=== PATIENT | male | born 1970 | race Two or more races ===

== ENCOUNTER 2016-12-12 16:21 | Observation (INO) ==
--- NOTE | 2016-12-12 16:42 | EKG Report ---
Please refer to the EKG image. Final interpretation is pending.
[2016-12-12] MEDS ORDERED: ASPIRIN 325 MG TABLET PO STA (16:50)
[2016-12-12] MEDS ORDERED: MORPHINE 2 MG/1 ML SYRINGE IV STA (16:50)
[2016-12-12] MEDS ORDERED: ALUM/MAG/SIMETH/LIDO VISC 1:1 30 ML BOTTLE PO STA (16:50)
[2016-12-12] MEDS ORDERED: NITROGLYCERIN 2% OINT 1 INCH/GM PACK TOP STA (16:50)
[2016-12-12] MEDS ORDERED: ONDANSETRON 4 MG/2 ML VIAL IV STA (16:50)
[2016-12-12 17:06] LABS: Basophils # 0.1 10*3/uL (0.0-0.2); Basophils % 0.9 % (0.0-0.8); Eosinophils # 0.1 10*3/uL (0.0-0.87); Eosinophils % 1.9 % (0.00-10.9); Hematocrit 41.1 VOL% (42.0-52.0); Hemoglobin 14.4 GM/DL (14.0-18.0); Immature Granulocytes % 0.3 %; Immature Granulocytes Absolute 0.02 #; Lymphocytes # 1.7 10*3/uL (1.4-4.0); Lymphocytes % 28.9 % (21.2-54.2); Mean Corpuscular Hemoglobin 30 PG (27-34); Mean Corpuscular Volume 85.1 FL (87-102); Mean Platelet Volume 9.8 FL (9.6-12.0); Monocytes # 0.4 10*3/uL (0.11-0.8); Monocytes % 7.4 % (1.7-12.7); Neutrophils # 3.6 10*3/uL (1.4-7.4); Neutrophils % 60.6 % (38.7-73.9); Platelet Count 164 T/CUMM (130-400); Red Blood Count 4.83 MC/CUMM (3.8-5.5); Red Cell Distribution Width 12.6 % (9.3-17.3); White Blood Count 5.9 T/CUMM (4-12)
[2016-12-12] MEDS ORDERED: ONDANSETRON 4 MG/2 ML VIAL ONE (17:07)
[2016-12-12] MEDS ORDERED: NITROGLYCERIN 2% OINT 1 INCH/GM PACK TOP ONE (17:07)
[2016-12-12] MEDS ORDERED: ASPIRIN 325 MG TABLET ONE (17:07)
[2016-12-12] MEDS ORDERED: ALUM/MAG/SIMETH/LIDO VISC 1:1 30 ML BOTTLE PO ONE (17:07)
[2016-12-12] MEDS ORDERED: MORPHINE 2 MG/1 ML SYRINGE ONE (17:07)
[2016-12-12 17:19] LABS: D-Dimer <= 0.5 MG/L FEU; INR 1.2; PT Patient Result 12.5 SECS
[2016-12-12 17:28] LABS: Albumin 4.1 G/DL (3.4-5.0); Bilirubin,Total 0.7 MG/DL (0.2-1.0); Calcium 9.5 MG/DL (8.5-10.1); Osmolality,Calculated 279.8 MOS/KG (273-304); Potassium 3.9 MMOL/L (3.5-5.1); Total Protein 7.6 G/DL (6.4-8.3)
--- NOTE | 2016-12-12 18:27 | XRay Report ---
History: Chest pain Date: 12/12/2016 Study: Chest x-ray AP portable Comparison exam: No previous The cardiac silhouette is upper normal in size. There is no mediastinal mass. The pulmonary vasculature is not engorged. The lungs are generally clear. There is no acute osseous abnormality. Impression: No acute cardiopulmonary process PROCEDURE INTERPRETED AT [facility] DEPARTMENT OF RADIOLOGY Final Report Signed by: Dr. Shikha Drummond
--- NOTE | 2016-12-12 18:47 | Emergency Department Note ---
IBrody Kasabria, am scribing for, and in the presence of, Tayo Thorne MD 17:03. IFadumo Charles R, MD, personally performed the services described in this documentation, ascribed by Jorge Luis Skinner in my presence, and it is both accurate and complete 847 . Arrival - Arrival Chief Complaint: Chest Pain Stated Complaint: chest pains ED Nursing Triage Note: sob pressure in his chest that started 20 minutes ago. has felt like euqilibrum has been off all day. had stents x2 placed last week in [place]. denies diaphoresis Mode of Arrival: Ambulatory Limitations: No Limitations Source: Patient Time Seen by Provider: 12/12/16 16:38 - History of Present Illness HPI Narrative: This is a 46 y/o white male presenting to the ED with c/o chest pain that onset twenty minutes ago. Pt states his equilibrium has been off all day and he feels tired. Pt had a HI one week ago and had stents placed a few days later in [place], [place]. He states this is the first time he has had chest pain since the stents were placed. Initially when he checked into the ER for his chest pain he stated there was dizziness. He later found out he had a HI. Pt believes he may have over exerted himself today while working. He describes his chest pain as a tightness and heaviness. The pain is non palpable and non radiating. 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 His catherization was planned. His SOB is exacerbated with exertion and resolved when resting. He denies diaphoresis, numbness, tingling, disorientation, nausea, and vomiting. Pt has a PMHx of diabetes and takes Metformin slow release, HTN and takes Lisinopril and he is currently taking ASA and Plavix daily. Pt has not checked his blood sugar today but states it is usually controlled. His PCP is Dr. Pepper and Dr. Layton at [facility]. Consistency: constant Severity: moderate Allergies/Adverse Reactions: Allergies Allergy/AdvReac Type Severity Reaction Status Date / Time No Known Allergies Allergy Unverified 12/12/16 16:29 Review of System - Review of System 12 point system: reviewed and no additional remarkable complaints except as stated - Review of System Constitutional: Present: other (feels tired ). Absent: chills, fever, weakness Eyes: Absent: vision change Head/Ears/Nose/Throat: Absent: earache, nasal drainage Respiratory: Absent: cough, wheezing Cardiovascular: Present: chest pain, dyspnea on exertion (resolved with resting ) Gastrointestinal: Absent: abdominal pain, nausea, vomiting, diarrhea Genitourinary male: Absent: dysuria Musculoskeletal: Absent: arm pain, back pain, leg pain, neck pain Skin: Absent: rash Neurological: Absent: headache, weakness, numbness, confusion, abnormal gait, vertigo Psychiatric: Absent: anxiety Endocrine: Absent: fatigue Medical,Surgical,& Family Hx - Medical History Cardio: History of: Hypertension Endocrine: History of: Diabetes Mellitus (NIDDM), Dyslipidemia - Surgical History Cardiac Surgeries: Sugical HX of: Cardiac Catheterization (stents 11/2016) - Social History Smoking Status: Never smoker Exam Vital Signs: Vital Signs Temperature 98.1 F 12/12/16 16:25 Pulse Rate 76 12/12/16 16:25 Respiratory Rate 20 12/12/16 16:25 Blood Pressure 157/88 12/12/16 16:25 O2 Sat by Pulse Oximetry 100 12/12/16 16:25 - General General appearance: alert, in distress (mild distress; feels washed out ) - Head Head exam: Present: atraumatic, normocephalic, normal inspection - Eye Eye exam: Present: normal appearance, PERRL, EOMI - ENT ENT exam: Present: normal exam, normal oropharynx, mucous membranes moist, TM's normal bilaterally, normal external ear exam - Neck Neck exam: Present: normal inspection, full ROM, trachea midline. Absent: tenderness - Chest Chest inspection: Present: normal inspection, symmetric chest wall rise. Absent : tenderness - Respiratory Respiratory exam: Present: rales (bilaterally ) - Cardiovascular Cardiovascular exam: Present: regular rate, normal rhythm, normal heart sounds - Abdominal Exam Abdominal exam: Present: soft, normal bowel sounds. Absent: distention, tenderness - Extremities Exam Extremities exam: Present: normal inspection, full ROM, normal capillary refill , pedal edema (+1 BLE). Absent: tenderness - Back Exam Back exam: Present: normal inspection, full ROM. Absent: tenderness - Neurological Exam Neurological exam: Present: alert, oriented X3, CN II-XII intact, normal gait, reflexes normal - Psychiatric Psychiatric exam: Present: normal affect, normal mood - Skin Skin exam: Present: warm, dry, intact, normal color. Absent: rash, diaphoresis Course - Consultations Consultation #1: Hospitalist will admit patient Time: 18:47 Results - Labs CBC & BMP: 12/12/16 17:02 12/12/16 17:02 Lab Results: I have reviewed the patients labs Disposition Clinical Impression: Chest pain, Stable angina Case discussed with: patient Disposition: Still a Patient Condition: Stable Time of Disposition: 18:47
--- NOTE | 2016-12-12 20:24 | Hospitalist History & Physical ---
Assessment and Plan (1) Chest pain Status: Acute Assessment and plan: serial troponins and ekg Current Visit: Yes (2) Hypertension Status: Acute Assessment and plan: Patient reports his blood pressure was 188 systolic prior to coming to the emergency room. His face looks very flushed. Currently his blood pressure is only 120 systolic but this is not recorded in the computer as of yet. His initial blood pressure on presentation was 157/88. Continue lisinopril, remove Nitropaste, cont imdur. Current Visit: Yes (3) Diabetes Status: Acute Assessment and plan: hgb A1c, cont metformin Current Visit: Yes (4) Snoring Status: Acute Assessment and plan: need outpatient sleep study, and needs to lose weight. Current Visit: Yes History of Present Illness Chief complaint: chest pain History of present illness: Mr. borges is a 46 year old male presents to the ED with c/o chest pain that onset twenty minutes ago. Pt states his equilibrium has been off all day and he feels tired. Pt had a IN one week ago and had two stents placed in his rca about 8 days ago at [facility] in [place], [place]. He states this is the first time he has had chest pain since the stents were placed. Pt believes he may have over exerted himself today while working. 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 He does have a history of anxiety and does snore at night when he sleeps. He is taking aspirin and Plavix he describes his chest pain as a tightness and heaviness. SOB is exacerbated with exertion and resolved when resting but he is very overweight. He denies diaphoresis, numbness, tingling, disorientation, nausea, and vomiting. Pt has a PMHx of diabetes and htn Home Medications Medication Instructions Recorded Confirmed Type Aspirin EC Tab 81 mg PO DAILY 12/12/16 12/12/16 History Atorvastatin Calcium [Atorvastatin 40 mg PO DAILY 12/12/16 12/12/16 History Calcium] Clopidogrel [Plavix] 75 mg PO DAILY 12/12/16 12/12/16 History Isosorbide Mononitrate [Isosorbide 30 mg PO DAILY 12/12/16 12/12/16 History Mononitrate ER] Lisinopril [Lisinopril] 20 mg PO DAILY 03/17/17 03/17/17 History Metformin HCl [Metformin HCl ER] 1,000 mg PO BID 12/12/16 12/12/16 History Multivitamin [Multivitamins] 1 each PO DAILY 12/12/16 12/12/16 History Allergies Allergy/AdvReac Type Severity Reaction Status Date / Time No Known Allergies Allergy Unverified 12/12/16 16:29 Medical,Surgical,& Family Hx - Medical History Cardio: History of: Hypertension Endocrine: History of: Diabetes Mellitus (NIDDM), Dyslipidemia - Surgical History Cardiac Surgeries: Sugical HX of: Cardiac Catheterization (stents 11/2016) - Family History Family History: Reports;: Family Diabetes, Family Heart Disease - Social History Smoking Status: Former smoker Frequency of Alcohol Use: None Type of Drug Use: None Marital Status: Lives With:: Spouse Functional capacity: independent ambulation - Constitutional Constitutional: Present: weight loss. Absent: fever(s), headache(s) - EENT Eyes: Absent: blurry vision, diplopia Ears: Absent: decreased hearing, ear discharge Nose, mouth and throat: Absent: headache(s), sore throat - Cardiovascular Cardiovascular: Present: chest pain at rest, dyspnea on exertion. Absent: edema - Respiratory Respiratory: Present: dyspnea on exertion, snoring. Absent: dyspnea - Gastrointestinal Gastrointestinal: Absent: constipation, diarrhea, nausea, vomiting - Genitourinary Genitourinary: Absent: dysuria, hematuria - Musculoskeletal Musculoskeletal: Absent: arthralgias - Neurological Neurological: Present: dizziness. Absent: headache(s), syncope - Psychiatric Psychiatric: Present: anxiety. Absent: depression - Endocrine Endocrine: Present: fatigue, heat intolerance. Absent: cold intolerance - Hematologic/Lymphatic Hematologic/Lymphatic: Present: easy bruising. Absent: easy bleeding Exam - Constitutional Vitals: Period Temp Pulse Resp BP Sys/Rolle Pulse Ox Last 24 Hr 98.1 F-98.1 F 76-76 20-20 157-157/88-88 100 General appearance: no acute distress, over weight - Head Head exam: Present: normal inspection, normocephalic - Eye Eye exam: Present: EOMI. Absent: scleral icterus Pupils: Present: DENNY, normal accommodation - ENT ENT exam: Present: normal exam, normal external ear exam - Neck Neck exam: Absent: lymphadenopathy, thyromegaly - Respiratory Respiratory exam: Present: clear to auscultation bilaterally. Absent: rhonchi, wheezes - Cardiovascular Cardiovascular exam: Present: regular rate and rhythm. Absent: systolic murmur - GI/Abdominal GI/Abdominal exam: Present: normal bowel sounds, soft. Absent: tenderness - Extremities Exam Extremities exam: Present: normal inspection, normal capillary refill - Neurological Exam Neurological exam: Present: alert, oriented X3, CN II-XII intact, reflexes normal. Absent: motor sensory deficit - Psychiatric Psychiatric exam: Present: normal affect, normal mood - Skin Skin exam: Present: normal color, warm Results - Labs CBC & BMP: 12/12/16 17:02 12/12/16 17:02 Lab Results: I have reviewed the past 24 hour labs - EKG EKG shows: sinus rhythm (No ST changes) - Diagnostic Findings Procedure: Chest x-ray: report reviewed by me (Nothing acute)
[2016-12-12] MEDS ORDERED: ONDANSETRON 4 MG/2 ML VIAL IV PRN (21:44)
[2016-12-12] MEDS ORDERED: BISACODYL 5 MG TABLET PO PRN (21:44)
[2016-12-12] MEDS ORDERED: MORPHINE 2 MG/1 ML SYRINGE IV PRN (21:44)
[2016-12-12] MEDS ORDERED: ZALEPLON 5 MG CAPSULE PO PRN (21:44)
[2016-12-12] MEDS ORDERED: INSULIN LISPRO 100 UNIT/ML SUBCUT ONE (21:44)
[2016-12-12] MEDS ORDERED: DEXTROSE 50% 25 GM/50 ML VIAL IV PRN (21:49)
[2016-12-12] MEDS ORDERED: GLUCAGON 1 MG VIAL IM PRN (21:49)
[2016-12-12] MEDS: SODIUM CHLORIDE 0.9% 1,000 ML IV SCH (22:11)
[2016-12-12] MEDS: metFORMIN 500 MG TABLET PO SCH (22:11)
[2016-12-13 04:59] LABS: Risk Ratio 2.48; VLDL CHOLESTEROL 39.2 MG/DL
[2016-12-13] MEDS ORDERED: INSULIN LISPRO 100 UNIT/ML SUBCUT SCH (07:30)
[2016-12-13 07:55] VITALS: BP 132/82
--- NOTE | 2016-12-13 08:20 | EKG Report ---
Stationary ECG Study [facility] Test Date: 12/13/2016 8:19:14 AM Pat Name: CAROLYN CHEN Department: Room: 292 Gender: M Flyer Builder: : 1970 Requested by: Marina Gamble Order Number: [id number] Reading MD: MARQUITA STEINBERG Intervals [place] Rate: 50 P: 42 AR: 177 QRS: 36 QRSD: 96 T: 31 QT: 445 QTc: 418 Interpretive Statements SINUS BRADYCARDIA LOW QRS VOLTAGE IN PRECORDIAL LEADS Electronically Signed On 12-15-16 06:33:07 CDT by MARQUITA STEINBERG [id number]
[2016-12-13] MEDS ORDERED: MULTIVITAMIN (CENTRUM) TABLET PO SCH (09:00)
[2016-12-13] MEDS ORDERED: ASPIRIN EC 81 MG TABLET PO SCH (09:00)
[2016-12-13] MEDS ORDERED: ISOSORBIDE MONONITRATE 30 MG TABLET PO SCH (09:00)
[2016-12-13] MEDS ORDERED: CLOPIDOGREL 75 MG TABLET PO SCH (09:00)
[2016-12-13] MEDS ORDERED: LISINOPRIL 20 MG TABLET PO SCH (09:00)
[2016-12-13] MEDS ORDERED: ATORVASTATIN 40 MG TABLET PO SCH (09:00)
[2016-12-13] MEDS: SODIUM CHLORIDE 0.9% 1,000 ML IV SCH (09:01)
[2016-12-13] MEDS: metFORMIN 500 MG TABLET PO SCH (09:06)
--- NOTE | 2016-12-13 09:39 | Discharge Summary ---
Hospital Course - Hospital Course Hospital Course: Mr. borges is a 46 year old male with a history of HTN and DM presents to the ED with c/o chest pain. He had two stents placed in his rca about 8 days ago at [facility] in [place], [place]. 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 Patient has undiagnosed sleep apnea which is contributing to his problem. His serial troponins and EKGs were completely normal. He has had no more chest pressure. He will be discharged home today to follow with his mini lab operator about his cath and his primary care doctor to get him scheduled for a sleep study. - Time spent with patient Time with patient DS: Less than 30 minutes Diagnosis - Discharge Diagnosis (1) Chest pain Status: Acute (2) Hypertension Status: Acute (3) Diabetes Status: Acute (4) Snoring Status: Acute Discharge Plan - Discharge Data Disposition: Disch To Home/Self Care Condition at Discharge: Stable Discharge Diet: diabetic diet, heart healthy Activity: resume usual activities as tolerated Hygiene: no restrictions Weight Bearing at Discharge: full weight bearing Driving: no restrictions - Discharge Medications Continue Lisinopril 20 mg PO DAILY Isosorbide Mononitrate [Isosorbide Mononitrate ER] 30 mg PO DAILY Atorvastatin Calcium 40 mg PO DAILY Clopidogrel [Plavix] 75 mg PO DAILY Multivitamin [Multivitamins] 1 each PO DAILY Metformin HCl [Metformin HCl ER] 1,000 mg PO BID Aspirin EC Tab 81 mg PO DAILY - Follow Up or Referral Follow Up: Dr Evgeny [Other] - 1 Week (need sleep evaluation cindy) Dr. Calin [Other] (as scheduled) - Forms/Instructions Exam - Constitutional Vitals: Period Temp Pulse Resp BP Sys/Rolle Pulse Ox Last 24 Hr 97.1 F-97.6 F 55-62 16-22 122-133/57-82 92-99 General appearance: normal weight, no acute distress - Respiratory Respiratory exam: Present: clear to auscultation bilaterally. Absent: rhonchi, wheezes - Cardiovascular Cardiovascular exam: Present: regular rate and rhythm. Absent: systolic murmur - GI/Abdominal GI/Abdominal exam: Present: normal bowel sounds, soft. Absent: tenderness - Extremities Exam Extremities exam: Present: normal inspection, normal capillary refill Discharge Results Labs on day of discharge: Labs from last 24 hours 03/12/13/16 12/12/16 07:22 03:38 23:22 POC Glucose 103 Hemoglobin A1c Troponin I < 0.015 Triglycerides 196 H Cholesterol 104 LDL Cholesterol 53.0 VLDL Cholesterol 39.2 HDL Cholesterol 42 Heart Disease Risk Ratio 2.48 12/12/16 12/12/16 12/12/16 22:10 21:58 21:58 POC Glucose 104 Hemoglobin A1c 7.3 H Troponin I < 0.015 Triglycerides Cholesterol LDL Cholesterol VLDL Cholesterol HDL Cholesterol Heart Disease Risk Ratio DS: Provider Date of admission: 12/12/16 19:09 Primary care physician: . No PCP Attending physician on admission: Marina Meneses MD Discharging clinician: Marina Meneses MD
--- NOTE | 2016-12-13 12:36 | EKG Report ---
Stationary ECG Study [facility] Test Date: 12/12/2016 11:19:50 PM Pat Name: CAROLYN CHEN Department: Room: 292 Gender: M Route Supervisor: : 1970 Requested by: Tayo Adames Order Number: [id number] Reading MD: MARQUITA STEINBERG Intervals [place] Rate: 58 P: 33 NH: 187 QRS: 19 QRSD: 93 T: 4 QT: 426 QTc: 424 Interpretive Statements SINUS RHYTHM NONSPECIFIC T-WAVE ABNORMALITY INTERPRETATION BASED ON A DEFAULT AGE OF 40 YEARS Electronically Signed On 12-15-16 06:31:18 CDT by MARQUITA STEINBERG [id number]
== END 2016-12-13 10:13 | disposition home or self-care (01) ==
LOC: N.EDINP 16:21 → N.ED 16:21 → N.EDINP 21:16 → N.TELEN 21:30
PROVIDERS: ADMIT Internal Medicine; ATTEND Internal Medicine